=== PATIENT | female | born 1985 | race Caucasian/White ===

== ENCOUNTER 2017-03-27 05:36 | Observation (INO) | payer OTHER ==
[2017-03-27] MEDS ORDERED: LIDOCAINE 1% 2 ML INJ ONE (06:00)
[2017-03-27] MEDS ORDERED: LR 1,000 ML IV ONE (06:05)
[2017-03-27] MEDS ORDERED: LIDOCAINE 1% 2 ML INJ ID PRN (06:05)
[2017-03-27] MEDS ORDERED: MIDAZOLAM 2 MG/2 ML VIAL IVP ONE (06:59)
--- NOTE | 2017-03-27 07:00 | PDANEPAE ---
ANE Past Medical History - Cardiovascular History Hx Hypertension: No Hx Arrhythmias: No Hx Chest Pain: No Hx Coronary Artery / Peripheral Vascular Disease: No Hx CHF / Valvular Disease: No Hx Palpitations: No - Pulmonary History Hx COPD: No Hx Asthma/Reactive Airway Disease: No Hx Recent Upper Respiratory Infection: No Hx Oxygen in Use at Home: No Hx Sleep Apnea: No Sleep Apnea Screening Result - Last Documented: Negative - Neurologic History Hx Cerebrovascular Accident: No Hx Seizures: No Hx Dementia: No - Endocrine History Hx Diabetes: No Hypothyroid: No Hyperthyroid: No Obesity: no - Renal History Hx Renal Disorders: No - Liver History Hx Hepatic Disorders: No - Neurological & Psychiatric Hx Hx Neurological and Psychiatric Disorders: Yes Neurological / Psychiatric History Comment: anxiety - Cancer History Hx Cancer: No - Congenital Disorder History Hx Congenital Disorders: No - GI History GERD: moderate Hx Gastrointestinal Disorders: Yes Gastrointestinal History Comment: gerd - Other Health History Other Health History: white spots on back - Chronic Pain History Chronic Pain: Yes (torn hip labrum) - Surgical History Prior Surgeries: none ANE Review of Systems Review of systems is: negative Review of Systems: - Exercise capacity METS (RN): 5 METS ANE Patient History - Allergies Allergies/Adverse Reactions: diphenhydramine [From Benadryl] Allergy (Severe, Verified 03/19/17 12:00) Swelling/neck,face,throat surgical tape Allergy (Intermediate, Uncoded 03/19/17 12:00) Other-Enter Comments - Home Medications Home medications: home medication list seen and reviewed Home Medications: Multi-Vitamin Gummies 03/19/17 [Last Taken Unknown] Omeprazole 03/19/17 [Last Taken 03/20/17] VITAMIN D 03/19/17 [Last Taken 03/20/17] - NPO status NPO Since - Liquids (Date): 03/26/17 NPO Since - Liquids (Time): 22:00 NPO Since - Solids (Date): 03/26/17 NPO Since - Solids (Time): 19:00 - Anes Hx Anes Hx: no prior problems - Smoking Hx Smoking Status: Never smoked - Family Anes Hx Family Hx Anesthesia Complications: none ANE Labs/Vital Signs - Vital Signs Blood Pressure: 120/72 Heart Rate: 86 Respiratory Rate: 16 O2 Sat (%): 98 Height: 177.8 cm Weight: 72.575 kg ANE Physical Exam - Airway Neck exam: FROM Mallampati Score: Class 1 Mouth exam: normal dental/mouth exam - Pulmonary Pulmonary: no respiratory distress - Cardiovascular Cardiovascular: regular rate and rhythym - ASA Status ASA Status: I ANE Anesthesia Plan Anesthesia Plan: general endotracheal anesthesia
[2017-03-27] MEDS ORDERED: BUPIVACAINE/EPI 0.5% 30 ML SDV ONE (07:03)
[2017-03-27] MEDS ORDERED: PROPOFOL 200 MG/20 ML VIAL ONE (07:04)
[2017-03-27] MEDS ORDERED: fentaNYL 250 MCG/5 ML INJ ONE (07:04)
[2017-03-27] MEDS ORDERED: ONDANSETRON 4 MG/2 ML VIAL ONE ×2 (07:05→09:52)
[2017-03-27] MEDS ORDERED: SUGAMMADEX SODIUM 200 MG/2 ML VIAL IVP ONE (07:05)
[2017-03-27] MEDS ORDERED: LIDOCAINE 2% 5 ML SDV ONE (07:05)
[2017-03-27] MEDS ORDERED: ROCURONIUM 100 MG/10 ML VIAL ONE (07:05)
[2017-03-27] MEDS ORDERED: DEXAMETHASONE 4 MG/ML VIAL ONE (07:05)
[2017-03-27] MEDS ORDERED: ceFAZolin 2 GM/DEXTROSE 100 ML IV ONE (07:15)
--- NOTE | 2017-03-27 07:15 | PDGENHP ---
History and Physical History and Physical: Assessment and Plan: 1. Dyspareunia, female Hannah has a long history of dyspareunia which is related to the cervix uterus and uterosacral ligaments. She certainly may have endometriosis. She has failed medical management. As result she is requesting surgical intervention. This will be a robotic assisted total laparoscopic hysterectomy excision of all endometriosis found. Subjective: Patient ID: Hannah Strange is a 31 y.o. female who [facility] to [facility] for dyspareunia. HPI Hannah is a 31-year-old para 2 woman using vasectomy for contraception. She presents to discuss painful intercourse. This has been present for about 15 years. She saw physician in [place] who thought she may have endometriosis. He recommended Lupron however she was concerned given her family history of blood clots. Her cycles are regular every month. She will bleed four days. 2 of the days are heavy when she will pass clots and is unable to use a tampon. She had severe dysmenorrhea in high school but her pain improved after having children. She describes it as a cramping and sharp pain. Her dyspareunia is sharp especially with deep penetration. This central in the pelvis. It seems to worsen around the time of her menses. She has no dyschezia but feels abdominal pressure. 85% of the time they have intercourse she has pain. She has tried control pills in the past which did not help. She wants to avoid hormones given her family history. She has no stress urinary incontinence. 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 PastMedicalHistory Past Medical History: Diagnosis Date No known health problems PastSurgicalHistory Past Surgical History: Procedure Laterality Date APPENDECTOMY APPENDECTOMY DILATION AND CURETTAGE OF UTERUS CURRENT MEDICATIONS: Current Outpatient Prescriptions Medication Sig ERGOCALCIFEROL, VITAMIN D2, (VITAMIN D PO) PRASTERONE, DHEA, (DHEA PO) No current facility-administered medications for this visit. ALLERGIES: Benadryl itch relief I have reviewed, verified and agree with the past medical, surgical, , family, social and ROS history as documented by the RN today. Objective: Vital Signs: Visit Vitals BP 112/60 Pulse 76 Resp 16 Ht 1.778 m (5' 10") Wt 73.5 kg (162 lb) SpO2 98% BMI 23.24 kg/m Physical Exam Gen: This is an alert, well developed woman in no distress. Neuro: She moves all extremities. Psych: She is appropriate, oriented, with normal affect. Neck: No thyroid enlargement, adenopathy, or tenderness. Lungs: Clear to ascultation, no wheezes or rales. Heart: Regular rate and rhythm without obvious murmurs. Abdomen: Soft, non-tender, without guarding, rebound, or masses. Extremities: No edema or cyanosis. Pelvic: Normal external genitalia. Non-gaping introitus, vagina without discharge, adequately estrogenized, no significant prolapse. Cervix without lesions or discharge. The cervix is exquisitely tender, especially posteriorly. Uterus normal sized, mobile, tender. The uterosacral ligaments are tender but no nodularity. Adnexa non-tender without enlargement. DATA: I have reviewed the pertinent medical records. TIME/COMMUNICATION: I personally spent a total of 40 minutes. Of that 30 minutes was counseling/ coordination of patient's care. See my note above for details. Conor Law MD Board Certified Female Pelvic Medicine and Reconstructive Surgery Director of Minimally Invasive Gynecologic Surgery, [facility] Surgeon in Minimally Invasive Gynecologic Surgery [facility] Surgeon in Robotic Surgery
--- NOTE | 2017-03-27 07:17 | PDHPUP ---
History & Physical Update H&P update statement: This history and physical update is based on an assessment of the patient which was completed after admission or registration (within 24 hours), but prior to the surgery/procedure. H&P update: H&P reviewed & patient examined, no change in patient's condition since H&P completed
[2017-03-27] MEDS ORDERED: ceFAZolin 2 GM/SWFI 20 ML SYR IVP ONE (07:22)
[2017-03-27] MEDS ORDERED: ceFAZolin 2 GM/SWFI 2 GM/20 ML SYR IVP ONE (07:30)
[2017-03-27] MEDS ORDERED: fentaNYL 100 MCG/2 ML INJ ONE ×2 (08:45→09:53)
[2017-03-27] MEDS ORDERED: METOCLOPRAMIDE 10 MG/2 ML VIAL IVP PRN (08:51)
[2017-03-27] MEDS ORDERED: NALOXONE HCL 0.4 MG/ML INJ IVP PRN (08:51)
[2017-03-27] MEDS ORDERED: HYDROCODONE/APAP 5/325 TAB PO PRN (08:51)
[2017-03-27] MEDS ORDERED: ALBUTEROL 3 ML DEYVIAL IH PRN (08:51)
[2017-03-27] MEDS ORDERED: LR 500 ML IV PRN (08:51)
[2017-03-27] MEDS ORDERED: OXYCODONE/APAP 5/325 TAB PO PRN ×2 (08:51→10:02)
[2017-03-27] MEDS ORDERED: ACETAMINOPHEN 500 MG TAB PO PRN (08:51)
[2017-03-27] MEDS ORDERED: ONDANSETRON 4 MG/2 ML VIAL IVP PRN ×2 (08:51→10:02)
--- NOTE | 2017-03-27 09:56 | POSTANESTH ---
Post Anesthetic Evaluation Cardiovascular Status: Normal, Stable Respiratory Status: Normal, Stable Level of Consciousness/Mental Status: Can Participate in Eval Pain Control: Adequate, Prn Tx Ordered Nausea/Vomiting Control: Adequate, Prn Tx Ordered Complications Possibly Related to Anesthesia: None Noted
[2017-03-27] MEDS: fentaNYL 100 MCG/2 ML INJ IVP PRN ×2 (09:57→10:15)
[2017-03-27] MEDS ORDERED: PROMETHAZINE HCL 25 MG/ML INJ IVP PRN (10:02)
--- NOTE | 2017-03-27 10:02 | POSTOPPROG ---
Post Op Note Date of Operation: 03/27/17 Surgeon: Conor [place] Nurse: Peyton Schneider Anesthesia: GET(General Endotracheal) Pre-op Diagnosis: Endometriosis, pelvic pain Post-op Diagnosis: same Procedure: Robotic hyst, excision of endo, bilat ureterolysis, US lig colopopexy , cyst Findings: Ureters function at end of case Inf/Abcess present in the surg proc area at time of surgery?: No EBL: 50-100 Complications: None
[2017-03-27] MEDS ORDERED: PROMETHAZINE HCL 25 MG/ML INJ ONE (10:19)
[2017-03-27] MEDS ORDERED: HYDROmorphONE/DILAUDID 1 MG/ML INJ ONE (10:19)
[2017-03-27] MEDS: PROMETHAZINE HCL 25 MG/ML INJ IVP PRN ×2 (10:22→10:53)
[2017-03-27] MEDS: HYDROmorphONE/DILAUDID 1 MG/ML INJ IVP PRN ×3 (10:28→11:08)
[2017-03-27] MEDS ORDERED: LR 1,000 ML IV SCH (10:30)
[2017-03-27] MEDS: KETOROLAC 30 MG/1 ML SDV IVP SCH ×2 (15:18→21:14)
--- NOTE | 2017-03-27 15:53 | GOP ---
[f rep st] OPERATIVE REPORT DATE OF OPERATION: 03/27/2017 SURGEON: Conor Law MD [employer] [employer]OW TEAM MEMBER: Peyton Schneider CFA. ANESTHESIA: General. PREOPERATIVE DIAGNOSIS: 1. Endometriosis. 2. Dysmenorrhea. 3. Dyspareunia. 4. Uterine prolapse. 5. Urinary urgency. POSTOPERATIVE DIAGNOSIS: 1. Endometriosis. 2. Dysmenorrhea. 3. Dyspareunia. 4. Uterine prolapse. 5. Urinary urgency. PROCEDURE PERFORMED: 1. Robotic-assisted total laparoscopic hysterectomy, bilateral salpingectomy. 2. Bilateral ureterolysis. 3. Excision of extensive endometriosis in the posterior cul-de-sac and bilateral ovarian fossae. 4. Uterosacral ligament colpopexy. 5. Cystoscopy. FINDINGS: SPECIMENS: Uterus, cervix, bilateral tubes, and pelvic peritoneum with endometriosis. ESTIMATED BLOOD LOSS: Less than 75 mL. DESCRIPTION OF PROCEDURE: The patient was taken to the operating room, where she was identified. Ge neral anesthesia was administered and found be adequate. She was placed in the lithotomy position an d prepared and draped in normal sterile fashion. A Gill[employer]are uterine manipulator was placed into the end ometrial cavity and sutured to the cervix. A Owen catheter was then placed. A 1 cm infraumbilical incision was made with a scalpel. The Veress needle with the CO2 gas flowing w as advanced into the peritoneal cavity. The abdomen was then insufflated with carbon dioxide gas. T he 12 mm trocar followed by the laparoscope were then inserted. The upper abdomen was unremarkable. There was no evidence of endometriosis on either diaphragm, liver, gallbladder, or bowel. Two later al ports were placed in the right, 1 on the left, under direct visualization. She then was placed in Trendelenburg position and the da Yoly robot docked on the left side. The instruments were then br ought into the abdominal cavity under direct visualization. The patient had endometriosis throughout the posterior cul-de-sac and bilateral ovarian fossae overly ing both ureters, as well as the uterosacral ligaments. Attention was first turned to excising the e ndometriosis. I started in the left ovarian fossa. This required a bilateral ureterolysis. The per itoneum at the pelvic brims was incised. The ureters were gently dissected free and lateralized off the overlying peritoneum and endometriosis from the pelvic brim all the way down to the bladder. Onc e this was accomplished, the entire ovarian fossa and peritoneum bilaterally was completely excised. The entire posterior cul-de-sac peritoneum from the distal rectum up to the cervix and laterally to include both uterosacral ligaments was completely excised. The left fallopian tube was along the mesosalpinx. The utero-ovarian ligament, followed by the round ligament were then cauterized and transected. The anterior leaf of the broad ligament was then incised over the left uterine vessels and across the cervix. The bladder was gently dissected off the cervix and upper vagina. The left uterine vasculature was then cauterized and transected. T he exact same procedure was performed on the patient's right side. A circumferential colpotomy incis ion was then made and all specimens were removed through the vagina. The vaginal cuff was then close d with a running suture of 0 V-Loc 180. A bilateral uterosacral ligament colpopexy was performed by attaching the lateral aspects of the vaginal cuff to the ipsilateral uterosacral ligaments near the i nsertion into the coccygeus-sacrospinous ligament complexes. The pelvis was then copiously irrigated with sterile saline and hemostasis was present. The robot was then undocked. The fascia was closed with 0 Vicryl, skin with 4-0 Monocryl and surgical adhesive. Cystoscopy was then performed. Both ureters had vigorous jets of urine. There was no evidence of bl adder nor urethral injury seen. 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 The Owen catheter was then placed. Anesthesia was reversed and the patient taken to PACU in awake and stable condition. COMPLICATIONS: None. DISPOSITION: Patient stable to PACU. /[id number]/MODL
[2017-03-27] MEDS: SIMETHICONE 80 MG TAB CHEW PO SCH ×3 (17:50→21:16)
[2017-03-27] MEDS: HYDROCODONE/APAP 5/325 TAB PO PRN (19:06)
[2017-03-27] MEDS: DOCUSATE SODIUM 100 MG CAP PO SCH (21:14)
[2017-03-28] MEDS: KETOROLAC 30 MG/1 ML SDV IVP SCH ×2 (03:43→09:26)
[2017-03-28 05:18] VITALS: RESP 16
[2017-03-28] MEDS: DOCUSATE SODIUM 100 MG CAP PO SCH (09:26)
[2017-03-28] MEDS: SIMETHICONE 80 MG TAB CHEW PO SCH (09:26)
[2017-03-28 09:34] VITALS: BP 107/66; PULSE 77; TEMP 97.9; O2SAT 98
[2017-03-28] MEDS: HYDROCODONE/APAP 5/325 TAB PO PRN (10:23)
--- NOTE | 2017-03-30 11:15 | GDS ---
[f rep st] DISCHARGE SUMMARY DISCHARGE DIAGNOSES: 1. Endometriosis. 2. Dysmenorrhea. 3. Dyspareunia. 4. Uterine prolapse. 5. Urinary urgency. PROCEDURES: 1. Robotic-assisted total laparoscopic hysterectomy, bilateral salpingectomy. 2. Bilateral ureterolysis. 3. Excision of extensive endometriosis. 4. Uterosacral ligament colpopexy. 5. Cystoscopy. HISTORY: The patient suffered from painful menses which was thought to be secondary to endometriosis . She was taken to the operating room on 03/27/2017, where she underwent the above-mentioned procedu res without complications. Her postoperative course was uneventful. The morning after surgery she was ambulating, voiding, and tolerating a general diet. She was discharged home on postoperative day #1 in good condition. Medic ations included ibuprofen and Percocet for pain. She was to follow up in the office 2 weeks after junior garcia. /[id number]/MODL
== END 2017-03-28 11:21 | disposition home or self-care (01) ==
LOC: F3N 05:36 → FOB 11:31 → EDSTATUS 12:30
PROVIDERS: ADMIT Obstetrics & Gynecology; ATTEND Obstetrics & Gynecology
PROC: 0UT7FZZ Resection of Bilateral Fallopian Tubes, Via Natural or Artificial Opening With Percutaneous Endoscopic Assistance (ICD-10-PCS; principal; 2017-03-27 07:15)
PROC: 0UT9FZZ Resection of Uterus, Via Natural or Artificial Opening With Percutaneous Endoscopic Assistance (ICD-10-PCS; principal; 2017-03-27 07:15)
PROC: 0UTC8ZZ Resection of Cervix, Via Natural or Artificial Opening Endoscopic (ICD-10-PCS; principal; 2017-03-27 07:15)
PROC: 0UUG4JZ Supplement Vagina with Synthetic Substitute, Percutaneous Endoscopic Approach (ICD-10-PCS; principal; 2017-03-27 07:15)
PROC: 8E0W8CZ Robotic Assisted Procedure of Trunk Region, Via Natural or Artificial Opening Endoscopic (ICD-10-PCS; principal; 2017-03-27 07:15)
PROC: 0UBF4ZZ Excision of Cul-de-sac, Percutaneous Endoscopic Approach (ICD-10-PCS; principal; 2017-03-27 07:15)
DX: N80.3 Endometriosis of pelvic peritoneum (principal); N80.1 Endometriosis of ovary; N94.6 Dysmenorrhea, unspecified; D25.9 Leiomyoma of uterus, unspecified; N94.12 Deep dyspareunia; R10.2 Pelvic and perineal pain; N81.4 Uterovaginal prolapse, unspecified; R39.15 Urgency of urination
CPT/HCPCS: 57425; 58571; 58662; G0378; J0690; J1100; J1170; J1885; J2250; J2405; J2550; J2704; J3010